=== PATIENT | male | born 1960 ===

== ENCOUNTER 2024-12-01 09:43 | Outpatient (REF) | payer SELFPAY ==
--- OUTSIDE RECORDS SUMMARY | 2023-01-11 13:30 | XMS_ITS | Continuity of Care Document ---
Author Organization [facility] Address [address] [place] [address] Phone Care Team Providers Care Pathology Tech Name Role Phone Services, Enabling Unavailable Unavailable Procedures Procedure Date Managed Car Ins Application Advance Directives Directive Yes / No Effective Date File Name No Information Encounters Encounter Description Practice Location Reason(s) For Visit Diagnoses Date Provider Providers Copied on Encounter [facility], [address], [place], [place], [id number], [place] tel:[phone] Enabling Services No Information 3 Services Enabling. [address] [place], [address]. tel:[phone] Family History Family Member Type Diagnosis Age At Onset No Information Payers Payer name Insurance type Covered constitution party ID Authoriza tion(s) No Information Social History Type Description Quantity Date Captured Comments Sex Male Smoking Status No Information Chief Complaint And Reason For Visit No Information Reason For Referral Reason For Referral No Information History Of Present Illness Encounter Date Complaint History Of Prese nt Illness No Information Functional Status Date Functional Assessmen t No Information Instructions Date Instruction Additional Infor mation No Information Assessments Type Assessment Date No Information Patient Care Teams Name Effective Dates (start - stop) Status Members No Information
--- OUTSIDE RECORDS SUMMARY | 2024-12-01 10:44 | XMS_ITS | Clinical Summary ---
Author Organization [facility] [employer] Address [address] [place] [address] [address] [place] [address] Care Team Providers Care Specimen Processor Name Role Phone Unavailable Primary Care Provider Unavailabl e Allergies No known active allergies Medications amLODIPine (Norvasc) 10 MG tablet 10 mg by Enteral route Once per day. 0 Active baclofen (Lioresal) 5 MG tablet 15 mg by Enteral route 3 times daily. 2 Active diazePAM (Valium) 5 MG/ML injection Infuse 2.5 mg into a venous catheter every 6 (six) hours if needed. 2 Active insulin regular (HumuLIN R) 100 UNIT/ML injection Inject 1-5 Units under the skin every 6 (six) hours. 2 Active levETIRAcetam (Keppra) 100 MG/ML solution 500 mg by Enteral route every 12 (twelve) hours. 2 Active scopolamine (Transderm-Scop ) 1 MG/3DAYS patch [address] 1 patch on the skin every 3rd (third) day. Active acetaminophen (Tylenol) 325 MG tablet Take by mouth. Activ e albuterol 0.63 MG/3ML nebulizer solution Take 0.63 mg by nebulization every 6 (six) hours if needed for wheezing. Active ondansetron (Zofran) 4 MG tablet Take by mouth. Activ e atorvastatin (Lipitor) 20 MG tablet Take 20 mg by mouth Once per day. Active Encounters Date Type Department Care Team Description 09/09/2024 2:00 PM EDT Office Visit [facility] [address] [place] [id number] Allie Bowen from Last 3 Months Social History Tobacco Use Types Packs/Day Years Used Date Smoking Tobacco: Unknown Tobacco Cessation:Counseling Given: Not Answered Sex and Gender Information Value Date Recorded Sex Assigned at Male 08/12/2024 11:05 AM EDT Legal Sex Male 6:02 PM EDT Gender Identity Male 08/12/2024 11:05 AM EDT Sexual Orientation Straight 11/22/2023 6: 02 PM EDT Plan of Treatment Health Maintenance Due Date Last Done Comments CT Colonography 1958 Colonoscopy 1958 Colorectal Cancer Screening 1958 Dental Oral Exam 1958 Depression Screening 1958 FIT DNA/Cologuard 1958 FIT 1958 FOBT 1958 Lipid Panel 1958 SDOH Screening 1958 Sigmoidoscopy 1958 Alcohol/Substance Use Screening 1970 Zoster Vaccines (1 of 2) 02/15/2008 Pneumococcal Vaccine: 50+ Years (2 of 2 - PCV) 12/22/2010 12/22/2009 RSV Patients and Patients Aged 60 years or older (1 - Risk 60-74 years 1-dose series) 2018 COVID-19 Vaccine (4 - season) 2024 08/31/2021, 08/07/2020, 07/10/2020 Influenza Vaccine (#1) 2025 , 03/01/2022, 02/16/2021, Additional history exists Dental Prophylaxis 03/13/2025 09/09/2024 Tobacco Screening 09/09/2025 09/09/2024 Dental X-Ray: Bitewings 09/10/2025 09/09/2024 Dental X-Ray: Full Mouth 09/11/2027 09/09/2024 DTaP/Tdap/Td Vaccines (4 - Td or Tdap) 11/14/2032 11/14/2022, 12/22/2009, 12/22/2009 HIV Screening Completed 04/23/2018 Hepatitis C Screening Completed 04/23/2018 HIB Vaccines Aged Out No longer eligi ble based on patient's age to complete this topic HPV Vaccines Aged Out No longer eligi ble based on patient's age to complete this topic Hepatitis A Vaccines Aged Out No long er eligible based on patient's age to complete this topic Hepatitis B Vaccines Aged Out No long er eligible based on patient's age to complete this topic IPV Vaccines Aged Out No longer eligi ble based on patient's age to complete this topic Meningococcal B Vaccine Aged Out No l onger eligible based on patient's age to complete this topic Meningococcal Vaccine Aged Out No andreas alesia eligible based on patient's age to complete this topic RSV under 20 months Aged Out No longe r eligible based on patient's age to complete this topic Rotavirus Vaccines Aged Out No longer eligible based on patient's age to complete this topic Procedures Procedure Name Priority Date/Time Associated Diagnosis Comments LIMITED ORAL EVALUATION - PROBLEM FOCUSED Routine 09/09/2024 2:00 PM EDT BEHAVIOR MANAGEMENT Routine 09/09/2024 2 :00 PM EDT PROPHYLAXIS - ADULT Routine 09/09/2024 2 :00 PM EDT CASE PRESENTATION, DETAILED AND EXTENSIVE TREATMENT PLANNING Routine 09/09/2024 2:00 PM EDT INTRAORAL - COMPLETE SERIES OF RADIOGRAPHIC IMAGES Routine 09/09/2024 2:00 PM EDT 19 MODBL COMPOSITE FILLING Routine 09/09/2024 12:00 AM EDT 8 DIL COMPOSITE FILLING Routine 09/09/2024 12:00 AM EDT 4 O AMALGAM FILLING Routine 09/09/2024 1 2:00 AM EDT 21 O AMALGAM FILLING Routine 09/09/2024 12:00 AM EDT 20 O AMALGAM FILLING Routine 09/09/2024 12:00 AM EDT 14 O AMALGAM FILLING Routine 09/09/2024 12:00 AM EDT 16 MOL AMALGAM FILLING Routine 09/09/2024 12:00 AM EDT 13 O AMALGAM FILLING Routine 09/09/2024 12:00 AM EDT 12 O AMALGAM FILLING Routine 09/09/2024 12:00 AM EDT 18 O AMALGAM FILLING Routine 09/09/2024 12:00 AM EDT 28 O AMALGAM FILLING Routine 09/09/2024 12:00 AM EDT 29 O AMALGAM FILLING Routine 09/09/2024 12:00 AM EDT 31 LA AMALGAM FILLING Routine 09/09/2024 12:00 AM EDT 30 O AMALGAM FILLING Routine 09/09/2024 12:00 AM EDT 15 EXTRACTION Routine 09/09/2024 12:00 AM EDT 3 LO COMPOSITE FILLING Routine 09/09/2024 12:00 AM EDT HM HEPATITIS C ANTIBODY Routine 04/23/2018 HM HIV 1/2 ANTIGEN AND ANTIBODY Routine 04/23/2018 from Last 3 Months or Most Recently Relevant to Health Maintenance Results * HM Hepatitis C Antibody (04/23/2018) Hepatitis C Antibody Nonreactive Blood Historical Provider HEALTH MAINTENANCE Final Result * HM HIV 1/2 Antigen and Antibody (04/23/2018) HIV Ag/Ab Nonreactive Historical Provider HEALTH MAINTENANCE Final Result from Last 3 Months or Most Recently Relevant to Health Maintenance Insurance [place] AD[place]
== END 2024-12-01 09:44 | disposition home or self-care (01) ==
LOC: HO.WMHL 09:43
PROVIDERS: Visit Provider Nurse Practitioner
DX: Z13.89 Encounter for screening for other disorder (principal)
CPT/HCPCS: 36415; 80053